=== PATIENT | male | born 1985 | race African-American/Black ===

== ENCOUNTER 2025-01-20 11:57 | Emergency (ER) | payer MEDICAID ==
[~2025-01-20] VITALS: Ht 180.3 cm; Wt 90.9 kg
[2025-01-20 11:59] VITALS: BP 123/82; PULSE 94; RESP 18; TEMP 97.9; O2SAT 98
[2025-01-20 12:25] LABS: APPEARANCE,URINE CLEAR (CLEAR); GLUCOSE, URINE (UA) >=1000 mg/dL (NEGATIVE); LEUKOCYTE ESTERASE ,URINE NEGATIVE (NEGATIVE); NITRATE,URINE NEGATIVE (NEGATIVE); OCCULT BLOOD,URINE NEGATIVE (NEGATIVE); SPECIFIC GRAVITIY, URINE 1.033 (1.003-1.030)
[2025-01-20 13:04] LABS: PLATELET COUNT (AUTO) 207 K/uL (150-450); RED BLOOD CELL COUNT(AUTO) 5.00 MIL/uL (4.50-5.90); RED CELL DISTRIBUTION WIDTH 12.7 % (11.5-14.5); WHITE BLOOD COUNT (AUTO) 4.1 K/uL (4.5-11.0)
[2025-01-20 13:14] LABS: SODIUM SERUM 130 mmol/L (136-145)
[2025-01-20 13:15] LABS: CALCIUM, TOTAL 8.2 mg/dL (8.8-10.5); CREATININE 1.28 mg/dL (0.60-1.30); GLOMERULAR FILTR. RATE CALC > 60 mL/min (>60); UREA NITROGEN, BLOOD 12 mg/dL (7-18)
[2025-01-20] MEDS: SODIUM CHLORIDE 0.9% 1,000 ML IV ONE (13:27)
[2025-01-20 13:29] LABS: GLUCOSE,RANDOM 559 mg/dL (70-110)
[2025-01-20 14:30] LABS: ASPARTATE AMINOTRANSFERASE 20.0 U/L (15-37)
[2025-01-20] MEDS: INSULIN REGULAR, HUMAN 100 UNITS/ML IVP ONE (14:30)
[2025-01-20 14:31] LABS: GLUCOMETER DEV NAME(LOC) ER.7; GLUCOSE,POINT OF CARE 461 MG/DL (70-110)
[2025-01-20 14:34] LABS: TOTAL PROTEIN, SERUM 7.2 g/dL (6.4-8.2)
[2025-01-20 18:15] LABS: GLUCOMETER DEV NAME(LOC) ER.7; GLUCOSE,POINT OF CARE 209 MG/DL (70-110)
== END 2025-01-20 16:50 | disposition home or self-care (01) ==
LOC: EMS 11:57
DX: E11.65 Type 2 diabetes mellitus with hyperglycemia (principal); R35.0 Frequency of micturition; R63.1 Polydipsia
CPT/HCPCS: 99283; 96374; 96361; 80048; 80076; 81001; 82009; 82962; 85025; 36415; J1815; J7030